=== PATIENT | male | born 1990 | race Caucasian/White ===

== ENCOUNTER 2017-07-23 21:08 | Emergency (ER) | payer OTHER ==
[~2017-07-23] VITALS: Ht 182.9 cm; Wt 81.6 kg
[2017-07-23 21:10] VITALS: BP 143/85
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
[2017-07-23] MEDS ORDERED: TETANUS AND DIPHTHERIA TOX/PF 0.5 ML VIAL. VAX IM ONE (22:00)
[2017-07-23] MEDS ORDERED: IBUPROFEN 600 MG TABLET. PO ONE (22:00)
[2017-07-23] MEDS ORDERED: ALBU8.5H8 INH (22:11)
[2017-07-23] MEDS ORDERED: RISP1TAB43 PO (22:11)
[2017-07-23] MEDS ORDERED: DIVA500T4 PO (22:11)
[2017-07-23] MEDS ORDERED: CICL6.1H4 IH (22:11)
== END 2017-07-23 22:07 | disposition home or self-care (01) ==
LOC: ER 21:08 → EEVIPCON 21:08 → ER 22:07
DX: S01.01XA Laceration without foreign body of scalp, initial encounter (principal); Y04.0XXA Assault by unarmed brawl or fight, initial encounter; Y93.89 Activity, other specified; Y99.8 Other external cause status; Y92.89 Other specified places as the place of occurrence of the external cause
CPT/HCPCS: 12002; 90471; 90714; 99283-25

== ENCOUNTER → 2017-09-04 | Outpatient (CLI) | payer OTHER ==
[~2017-09-04] MED LIST: ALBU8.5H8 INH; CICL6.1H4 IH; DIVA500T4 PO; RISP1TAB43 PO
[2017-09-04 15:25] LABS: BASO % 0 % (0-3); EOS # 0.1 x10^3/uL (0.0-0.7); EOS % 1 % (0-3); HEMATOCRIT 43.7 % (39.0-53.0); LYMPH # 2.2 x10^3/uL (1.0-4.8); LYMPH % 21 % (24-48); MEAN CORPUSCULAR HEMOGLOBIN 29 pg (25-35); MEAN CORPUSCULAR HGB CONC 34 g/dL (31-37); MEAN CORPUSCULAR VOLUME 84 fL (79-100); MONO % 10 % (0-9); NEUT # 6.8 x10^3uL (1.8-7.7); NEUT % 67 % (31-73); PLATELET COUNT 249 x10^3/uL (140-400); RED BLOOD COUNT 5.24 x10^6/uL (4.30-5.70); RED CELL DISTRIBUTION WIDTH 13.3 % (11.5-14.5); WHITE BLOOD COUNT 10.1 x10^3/uL (4.0-11.0)
[2017-09-04 15:33] LABS: ALBUMIN 4.7 g/dL (3.4-5.0); ALBUMIN/GLOBULIN RATIO 1.5 (1.0-1.7); CREATININE 0.9 mg/dL (0.7-1.3); GFR 103.7; POTASSIUM 4.5 mmol/L (3.5-5.1); TOTAL BILIRUBIN 0.4 mg/dL (0.2-1.0); TOTAL PROTEIN 7.9 g/dL (6.4-8.2)
[2017-09-04 16:34] LABS: SEDIMENTATION RATE 0 (0-15)
== END | disposition home or self-care (01) ==
LOC: SPEC 15:13
PROVIDERS: ATTEND Nurse Practitioner Family
DX: R10.84 Generalized abdominal pain (principal)
CPT/HCPCS: 36415; 80053; 82150; 83690; 85025; 85651